=== PATIENT | female | born 1935 | race Caucasian/White ===

== ENCOUNTER 2017-04-05 13:22 | Outpatient (CLI) | payer MEDICARE ==
[~2017-04-05] VITALS: Ht 165.1 cm; Wt 77.3 kg
[~2017-04-05 13:22] MED LIST: ACETAMINOPHEN500 M1 PO; ALENDRONATE SOD70 MG PO; CALCIUM 600 +1 EAC3 PO; CETIRIZINE HCL5 MG PO; FEROCON CAPSUL1 EACH PO; GLUCOPHAGE500 MG PO; PRAVACHOL20 MG PO; ZYRTEC10 MG PO
[2017-04-05 13:58] VITALS: BP 113/63; Ht 165.1 cm; Wt 77.3 kg
== END 2017-04-05 14:06 | disposition home or self-care (01) ==
LOC: D.OPS 13:22
DX: M81.0 Age-related osteoporosis without current pathological fracture (principal)

== ENCOUNTER 2017-05-31 07:30 | Day surgery (SDC) | payer MEDICARE ==
[~2017-05-31] VITALS: Ht 165.1 cm; Wt 79.5 kg
--- NOTE | ~2017-05-31 | OP ---
PATIENT NAME: EFFIE RILEY MEDICAL RECORD: [id number] :37 LOCATION:D.OPS ADMISSION DATE: SURGEON: NUSRAT BLAIR MD DATE OF OPERATION: 05/31/2017 PREOPERATIVE DIAGNOSES: 1. Dysphagia. 2. Gastroesophageal reflux. 3. Reece's. POSTOPERATIVE DIAGNOSES: 1. Dysphagia. 2. Gastroesophageal reflux. 3. Reece's with large hiatal hernia, type IV. PROCEDURES: 1. Esophagogastroduodenoscopy with antral and random biopsies in the area of long segment Reece's. 2. Esophageal dilation up to 54-Swedish with a through the catheter balloon. SURGEON: Nusrat Blair MD. WINE CELLAR STOCK CLERK: None. BLOOD LOSS: Minimal. ANESTHESIA: IV sedation. COMPLICATIONS: None. The risks, possible complications and alternatives to procedure were explained to the patient. She elects to proceed. ENDOSCOPIC COURSE: The patient was conveyed to endoscopy suite electively on 05/31/2017. Intravenous sedation was induced by the anesthesia staff. A bite block was inserted. A gastroscope was inserted into the mouth. It was advanced easily into the hypopharynx. The esophagus was easily intubated as were the stomach and duodenum. Upon withdrawal, retroflexed and angulus views were obtained. Antral biopsies were obtained. I then advanced it through the catheter balloon. I sequentially dilated the entire length of the esophagus to 54-Swedish. The balloon dilator was then removed. I re-endoscoped the patient's esophagus. Four-quadrant biopsies were taken every centimeter up the area of Reece esophagus. The Reece's started at 22 cm from the lips to 40 cm. The endoscope was then withdrawn under direct vision. I will see the patient in my office in 2-3 weeks. Sometime in the future, she may be a candidate for Reece's in the area of long segment Reece esophagus. TRANSINT:[id number] Voice Confirmation ID: [id number] DOCUMENT ID: [id number] OPERATIVE REPORT [id number] GREGORIO RILEYLY Pita NUSRAT BLAIR MD CC: [id number] DICTATION DATE: 05/31/17 1136 RESEARCH MANAGEMENT ASSOCIATE: 05/31/17 1235 [facility] 05/31/17 [place] [address]
--- NOTE | ~2017-05-31 | HP ---
PATIENT: EFFIE RILEY MEDICAL RECORD: [id number] ACCOUNT: [id number] LOCATION:KEYSHA : 39 ADMISSION DATE: 05/31/17 HISTORY AND PHYSICAL EXAMINATION CHIEF COMPLAINT: Difficulty swallowing. HISTORY OF PRESENT ILLNESS: The patient has gastroesophageal reflux. She also has dysphagia about the mid esophagus. She is to undergo EGD for surveillance upper endoscopy with biopsies in the area of Reece as well as esophageal dilation. SOCIAL HISTORY: Nonsmoker. PAST MEDICAL AND SURGICAL HISTORY: Noninsulin dependent diabetes mellitus, hypercholesterolemia, history of appendectomy, history of tubal ligation, history of knee arthroscopy. REVIEW OF SYSTEMS: Negative for CVA or seizures. Negative for coronary artery disease or hypertension. HOME MEDICINES: Metformin, pravastatin as well as calcium. ALLERGIES: No known drug allergies. PHYSICAL EXAMINATION: GENERAL: The patient does not appear acutely ill. She does not appear chronically ill. VITAL SIGNS: Reviewed. HEAD: External ears appear normal. EYES: Extraocular movements are intact. NECK: Trachea is midline. CHEST: No intercostal retractions. PULMONARY: Nonlabored, no stridor. ABDOMEN: No peritonitis with movement. IMPRESSION: 1. Reece esophagus. 2. Gastroesophageal reflux. 3. Esophageal dilation. PLAN: EGD, esophageal dilation and surveillance upper endoscopy with biopsies in the area of Reece esophagus. TRANSINT:[id number] Voice Confirmation ID: [id number] DOCUMENT ID: [id number] HISTORY AND PHYSICAL [id number] ROSEMARYEFFIE ROBERT MD CC: EMETERIO CORRALES MD [id number] DICTATION DATE: 05/31/17 1113 BANDAGE WRAPPING MACHINE OPERATOR: 05/31/17 1122 [address] [place] [id number] [place] [id number]
[2017-05-31 08:43] LABS: BASOPHILS 0.6 % (0-2); EOSINOPHILS 6.4 % (0-7); HEMATOCRIT 38.7 % (36.0-48.0); HEMOGLOBIN 12.7 g/dL (12-16); LYMPHOCYTES 44.5 % (15-50); MCH 30.2 pg (26.0-34.0); MCHC 32.8 g/dL (31.0-37.0); MCV 92.1 fL (80.0-100.0); MONOCYTES 7.6 % (2-11); NEUTROPHILS 40.9 % (40-80); PLATELET COUNT 242 10x3/uL (130-400); WBC 4.9 10x3/uL (4.8-10.8)
[2017-05-31 08:56] LABS: ANION GAP 10.4 mmol/L (8-16); CALCIUM 8.3 mg/dL (8.5-10.1); CARBON DIOXIDE 28.5 mmol/L (21.0-32.0); CREATININE - SERUM 0.9 mg/dL (0.6-1.3); POTASSIUM - SERUM 3.9 mmol/L (3.5-5.1)
[2017-05-31 09:04] VITALS: BP 122/77; Ht 165.1 cm; Wt 79.5 kg
[2017-05-31] MEDS ORDERED: DEXILANT30 MG PO (09:04)
--- NOTE | 2017-05-31 11:21 | NUR ---
ESOPHAGUS DILATED TO 18 CM
== END 2017-05-31 12:30 | disposition home or self-care (01) ==
LOC: D.OPS 07:30
PROVIDERS: Anesthesiology
DX: R13.10 Dysphagia, unspecified (principal); K21.9 Gastro-esophageal reflux disease without esophagitis; K22.70 Barrett's esophagus without dysplasia; K44.9 Diaphragmatic hernia without obstruction or gangrene; E11.9 Type 2 diabetes mellitus without complications; E78.00 Pure hypercholesterolemia, unspecified; Z79.84 Long term (current) use of oral hypoglycemic drugs; Z79.899 Other long term (current) drug therapy; Z01.812 Encounter for preprocedural laboratory examination

== ENCOUNTER 2017-07-27 05:23 | Day surgery (SDC) | payer MEDICARE ==
[~2017-07-27 05:23] MED LIST changes: +DEXILANT60 MG PO
[2017-07-27 06:27] VITALS: BP 115/79; BMI 29.8
[2017-07-27 06:52] LABS: HEMATOCRIT 41.2 % (36.0-48.0); HEMOGLOBIN 13.6 g/dL (12-16); MCH 30.7 pg (26.0-34.0); MEAN PLATELET VOLUME 10.2 fL (7.4-10.4); RBC 4.43 10x6/uL (4.00-5.40); WBC 4.4 10x3/uL (4.8-10.8)
[2017-07-27 08:31] LABS: ANION GAP 10.7 mmol/L (8-16); CALCIUM 9.2 mg/dL (8.5-10.1); CARBON DIOXIDE 29.2 mmol/L (21.0-32.0); POTASSIUM - SERUM 3.9 mmol/L (3.5-5.1)
[2017-07-27 12:05] VITALS: BP 142/70
--- NOTE | 2017-07-27 12:05 | NUR ---
RECEIVED TO ROOM 2218 FROM RECOVERY ROOM VIA BED. ORIENTED TO FLOOR AND CALL LIGHT SYSTEM. AT BEDSIDE. CALL LIGHT IN REACH. WILL CONTINUE WITH PLAN OF CARE.
--- NOTE | 2017-07-27 12:42 | NUR ---
DILAUDID IT TRAINEE INITIATED PER ORDER. PEPCID 40 MG SIVP. SCDs TO BLE. IN ROOM. CALL LIGHT IN REACH. WILL CONTINUE WITH PLAN OF CARE.
--- NOTE | 2017-07-27 14:05 | NUR ---
CUP OF ICE TAKEN TO PATIENT PER REQUEST.
[2017-07-27 14:23] VITALS: BP 124/69; BMI 29.8
--- NOTE | 2017-07-27 15:02 | OP ---
PATIENT NAME: EFFIE RILEY MEDICAL RECORD: [id number] :37 LOCATION:D.MS [id number] ADMISSION DATE: SURGEON: MALDONADO DELGADO MD DATE OF OPERATION: 07/27/2017 SURGEON: Edwin Diana MD AIRCRAFT TIME CLERK SURGEON: MALDONADO DELGADO MD (JJ) PROCEDURE: Laparoscopic grade III paraesophageal hernia repair with Amador fundoplication. OPERATIVE COURSE: I assisted Dr. Diana during all fraser portions of the operation today. Please see Dr. Diana's op note for full details of operation. I assisted during placement of the trocars. I assisted Dr. Diana with reduction of the paraesophageal hernia, dissection and removal of the hernia sac, mediastinal dissection, closure of the hiatal hernia as well as assisted during the Amador fundoplication. For complete details, the steps involved, please see Dr. Diana's operative note. TRANSINT:[id number] Voice Confirmation ID: [id number] DOCUMENT ID: [id number] MALDONADO DELGADO MD at 1502 CC: [id number] DICTATION DATE: 07/27/17 1047 CEMENT FINISHER: 07/27/17 1124 [address] [place] [address] [place] [address]
--- NOTE | 2017-07-27 16:25 | NUR ---
MANAGER TRANSPORTATION STILL IN USE FOR PAIN CONTROL. NO NEEDS VOICED AT THIS TIME. EXPLAINED THAT SHE NEEDS TO WALK SOON POSSIBLE TO HELP WITH THE GAS PAINS. VERBALIZED UNDERSTANDING.
--- NOTE | 2017-07-27 16:50 | NUR ---
MADE SURE THAT PATIENT IS DRINKING 30 CC OF FLUID EVERY 30 MINUTES. ALSO EXPLAINED THAT SHE NEEDS TO WALK SOON POSSIBLE TO HELP WITH THE GAS PAINS. VERBALIZED UNDERSTANDING.
--- NOTE | 2017-07-27 18:23 | NUR ---
AMBULATIED 250 FT IN HALLWAY WITH STANDBY ASSIST. VOIDED 300 CC. NO OTHER CHANGES IN INITIAL ASSESSMENT. CALL LIGHT IN REACH. SCDs TO BLE. WILL CONTINUE WITH PLAN OF CARE.
[2017-07-27 20:00] VITALS: BP 131/74
--- NOTE | 2017-07-27 20:00 | NUR ---
ASSESSMENT PER FLOWSHEET. IV PATENT RT WRIST OF NS AT 100CC'S/HR DIRECTOR OF STUDENT SERVICES OF DILAUDID IN USE WITH SETTINGS AT 0.2MG Q10MIN W/NO L/O. LAP SITES TO ABDOMEN X5 C/D/I. O2 AT 2L/M PER NC. OFF AT THIS TIME USE PRN. NO DISTRESS.
--- NOTE | 2017-07-27 21:00 | NUR ---
AMBULATED IN HALLWAY FOR 250 FEET. TOLERATED WELL. TAKING CLEAR LIQUIDS WELL NO CARBO DRINKS AND NO STRAWS USED.
--- NOTE | 2017-07-27 23:32 | NUR ---
EYES CLOSED RESPIRATIONS WITH EASE AND UNLABORED.
[2017-07-28] VITALS: BP 130/70
--- NOTE | 2017-07-28 01:55 | NUR ---
EYES CLOSED RESPIRATIONS WITH EASE AND UNLABORED. O2 ON 2L/M PER NC. NO DISTRESS.
--- NOTE | 2017-07-28 03:32 | NUR ---
EYES CLOSED RESPIRATIONS WITH EASE AND UNLABORED.
[2017-07-28 04:00] VITALS: BP 143/72
[2017-07-28 05:21] LABS: BASOPHILS 0.1 % (0-2); EOSINOPHILS 0.1 % (0-7); HEMATOCRIT 44.9 % (36.0-48.0); HEMOGLOBIN 14.3 g/dL (12-16); IMMATURE GRANULOCYTES 0.1 % (0-5); LYMPHOCYTES 13.7 % (15-50); MCH 30.3 pg (26.0-34.0); MCHC 31.8 g/dL (31.0-37.0); MEAN PLATELET VOLUME 10.7 fL (7.4-10.4); MONOCYTES 7.5 % (2-11); NEUTROPHILS 78.5 % (40-80); PLATELET COUNT 230 10x3/uL (130-400); RBC 4.72 10x6/uL (4.00-5.40); RDW 12.8 % (11.5-14.5)
[2017-07-28 05:37] LABS: MCV 95.1 fL (80.0-100.0); WBC 7.6 10x3/uL (4.8-10.8)
[2017-07-28 05:47] LABS: ALBUMIN 3.5 g/dL (3.4-5.0); ANION GAP 14.2 mmol/L (8-16); BILIRUBIN - TOTAL 0.65 mg/dL (0.2-1.3); CALCIUM 8.2 mg/dL (8.5-10.1); CARBON DIOXIDE 25.4 mmol/L (21.0-32.0); CREATININE - SERUM 0.9 mg/dL (0.6-1.3); MAGNESIUM - SERUM 2.1 mg/dL (1.8-2.4); PHOSPHOROUS 3.1 mg/dL (2.5-4.9); POTASSIUM - SERUM 3.6 mmol/L (3.5-5.1); PROTEIN - SERUM 7.1 g/dL (6.4-8.2)
--- NOTE | 2017-07-28 07:28 | NUR ---
REPORT RECEIVED FROM FIELD CROP FARMER NURSE. CALL LIGHT IN REACH.
--- NOTE | 2017-07-28 08:43 | NUR ---
SPOKE WITH DR. BLAIR ABOUT PATIENT'S HEADACHE. NEW ORDER FOR BECKIE.
[2017-07-28 09:01] VITALS: BP 149/78
--- NOTE | 2017-07-28 10:00 | NUR ---
NEW BAG OF NS INITIATED @ 100 CC/HR.
[2017-07-28 12:22] VITALS: BP 132/74
[2017-07-28] MEDS ORDERED: HYDROCODON-ACE1 EAC7 PO (14:03)
--- NOTE | 2017-07-28 14:10 | NUR ---
IV DC'D WITH TIP INTACT.
--- NOTE | 2017-07-28 14:58 | NUR ---
PATIENT IS BEING DISCHARGED HOME AT THIS TIME. DENIES NEEDS.
--- NOTE | 2017-07-28 15:00 | NUR ---
DC INSTRUCTIONES EXPLAINED TO PATIENT AND . VERBALIZED. RX FOR NORCO HANDED TO PATIENT. DC'D TO VEHICLE VIA WC WITH .
--- NOTE | 2017-07-29 11:13 | HP ---
PATIENT: EFFIE RILEY MEDICAL RECORD: [id number] ACCOUNT: [id number] LOCATION:AnanyaLisaCRESENCIO : 37 ADMISSION DATE: 07/27/17 HISTORY AND PHYSICAL EXAMINATION Addendum There is a typed history and physical on the chart. History and physical examination is unchanged from the patient's visit to the office. I saw the patient in the holding area. I answered all of her questions. The risks, possible complications and alternatives to procedure were explained to the patient. She elects to proceed. We are going to proceed with laparoscopic hiatal hernia repair as well as a Amador fundoplication with Dr. Mccrary as the claims assistant. TRANSINT:[id number] Voice Confirmation ID: [id number] DOCUMENT ID: [id number] NUSRAT BLAIR MD at 1113 CC: [id number] DICTATION DATE: 07/27/17 1124 DIRECTOR CORRECTIONAL AGENCY: 07/27/17 1136 [facility] 07/28/17 [place] [id number] [place] [address]
--- NOTE | 2017-07-29 11:13 | OP ---
PATIENT NAME: EFFIE RILEY MEDICAL RECORD: [id number] :37 LOCATION:D.OPS ADMISSION DATE: SURGEON: NUSRAT BLAIR MD DATE OF OPERATION: 07/27/2017 PREOPERATIVE DIAGNOSES: 1. Intractable gastroesophageal reflux disease. 2. Large hiatal hernia. POSTOPERATIVE DIAGNOSES: 1. Intractable gastroesophageal reflux disease. 2. Grade III paraesophageal hernia. PROCEDURES: 1. Laparoscopic grade III paraesophageal hernia repair. 2. Laparoscopic Amador fundoplication. SURGEON: Nusrat Blair MD AIR VALUE TESTER: Dr. Donald Mccrary COMPLICATIONS: None. DRAINS: None. BLOOD LOSS: Less than 25 cc. The risks, possible complications, and alternatives to procedure were explained to the patient. He elects to proceed. Due to complexity of the procedure, 2 attending surgeons were necessary for completion of procedure. Dr. Mccrary will dictate an assistant track coach's note separately. He was present for the entire operation. His involvement in the operation included, but was not limited to, dissection, blunt retraction of tissues, assistance with laparoscopic suturing, irrigating and aspirating, assistance with placement of the Alvin retractor. His involvement in the blunt dissection and retraction was very significant. OPERATIVE COURSE: The patient was conveyed to the operating room electively on 07/27/2017. General anesthesia was induced by the anesthesia staff. The abdomen was sterilely prepped and draped. Utilizing Optiport device, incision was accomplished within the umbilicus and I advanced the Optiport device into the peritoneal cavity. CO2 insufflation was begun. Once a sufficient pneumoperitoneum had been achieved, an abdominal survey was undertaken. I noted no evidence of adhesive disease. Two 5-mm trocars were inserted in the left side of the abdomen. I changed out the umbilical 5-mm trocar for a 12-mm trocar. An 11 and then 12-mm trocars were placed in the right side of the abdomen. A skin incision was accomplished just to the left of the xiphoid process and a Alvin retractor was placed here easily. I retracted the left lateral segment of the liver with the Alvin retractor. Once I was satisfied with placement, we began the dissection of the phrenicoesophageal ligament, which was an extensive dissection. This was a OPERATIVE REPORT [id number] EFFIE RILEY large hernia. We reduced the stomach. We continued our blunt and Harmonic scalpel dissection up above the diaphragm. Once we were able to release all the phrenicoesophageal ligamentous attachments, we pulled the stomach down to the abdominal cavity. We measured a total of 6 cm of intra-abdominal esophagus that was not under tension. Retroesophageal window was completed. I then performed a posterior crural repair utilizing the Prolene and Stratafix device with a running suture. I then locked the suture. I was satisfied with the crural repair. Dr. Mccrary retracted the esophagus anteriorly during this procedure. We then brought the fundus of the stomach around posterior to the esophagus. We then sutured utilizing the Stratafix Prolene suture, the left fundus of the stomach to the right fundus of the stomach and we ran this down the anterior portion of the esophagus. We then locked the suture in place. We irrigated and aspirated. Some Cole was added up in the mediastinum. It was added to the hilum of the spleen as well. The Deon-Hal suture closure device was used with 0 Vicryl sutures to close the 11 and 12-mm trocar sites in the right upper quadrant. An UR6 0 Vicryl suture was used to close the fascial defect at the umbilicus. All the trocars were removed and the abdomen was desufflated. Marcaine was added to the subcutaneous tissues around the trocar sites for postoperative analgesia. The skin incision at the umbilicus was closed with interrupted 4-0 Vicryl Rapide sutures. The other skin incisions were closed with interrupted intracuticular 3-0 and 4-0 Vicryls. Sterile dressings were applied. The patient was then extubated and conveyed to post-anesthesia care unit, where she was in stable condition. TRANSINT:[id number] Voice Confirmation ID: [id number] DOCUMENT ID: [id number] NUSRAT BLAIR MD at 1113 CC: EMETERIO CORRALES MD [id number] DICTATION DATE: 07/27/17 1137 MOLDING SUPERVISOR: 07/27/17 [address] [facility] 07/28/17 [place] [address]
== END 2017-07-28 15:00 | disposition home or self-care (01) ==
LOC: D.OPS 05:23 → D.MS 11:54
PROVIDERS: Anesthesiology; Surgery
DX: K21.9 Gastro-esophageal reflux disease without esophagitis (principal); K44.9 Diaphragmatic hernia without obstruction or gangrene; Z01.812 Encounter for preprocedural laboratory examination

== ENCOUNTER 2017-10-12 10:24 | Outpatient (CLI) | payer MEDICARE ==
[~2017-10-12] VITALS: Ht 165.1 cm; Wt 75.0 kg
[~2017-10-12 10:24] MED LIST changes: +HYDROCODON-ACE1 EAC7 PO
[2017-10-12 11:06] VITALS: BP 127/73; Ht 165.1 cm; Wt 75.0 kg
== END 2017-10-12 11:10 | disposition home or self-care (01) ==
LOC: D.OPS 10:24
DX: M81.0 Age-related osteoporosis without current pathological fracture (principal)

== ENCOUNTER 2018-05-30 12:28 | Outpatient (CLI) | payer MEDICARE ==
[~2018-05-30] VITALS: Ht 165.1 cm; Wt 68.2 kg
[2018-05-30 12:59] VITALS: BP 112/61; Ht 165.1 cm; Wt 68.2 kg
== END 2018-05-30 13:45 | disposition home or self-care (01) ==
LOC: D.OPS 12:28
DX: M81.0 Age-related osteoporosis without current pathological fracture (principal)

== ENCOUNTER 2019-02-13 12:15 | Outpatient (CLI) | payer MEDICARE ==
[2019-02-13 13:12] VITALS: BP 134/75; BMI 25.1
== END 2019-02-13 13:25 | disposition home or self-care (01) ==
LOC: D.OPS 12:15
DX: M81.0 Age-related osteoporosis without current pathological fracture (principal)

== ENCOUNTER 2019-08-29 10:35 | Outpatient (CLI) | payer MEDICARE ==
[~2019-08-29] VITALS: Ht 165.1 cm; Wt 65.9 kg
[2019-08-29 11:02] VITALS: BP 137/68; Ht 165.1 cm; Wt 65.9 kg
== END 2019-08-29 11:05 ==
LOC: D.OPS 10:35
PROVIDERS: ATTEND Family Medicine
DX: M81.0 Age-related osteoporosis without current pathological fracture (principal)

== ENCOUNTER 2021-04-01 05:49 | Day surgery (SDC) | payer OTHER ==
[~2021-04-01] VITALS: Ht 167.6 cm; Wt 63.6 kg
[~2021-04-01 05:49] MED LIST changes: +MULTI-DAY VITAM1 TAB PO; +PERCOCET 5-3251 TAB PO
[2021-04-01 06:29] LABS: BASOPHILS 0.8 % (0-2); EOSINOPHILS 4.3 % (0-7); HEMATOCRIT 38.2 % (36.0-48.0); HEMOGLOBIN 12.7 g/dL (12-16); LYMPHOCYTES 43.5 % (15-50); MCH 30.3 pg (26.0-34.0); MCHC 33.4 g/dL (31.0-37.0); MCV 90.9 fL (80.0-100.0); MEAN PLATELET VOLUME 7.9 fL (7.4-10.4); MONOCYTES 8.5 % (2-11); NEUTROPHILS 42.9 % (40-80); PLATELET COUNT 245 10x3/uL (130-400); RDW 13.5 % (11.5-14.5); WBC 4.2 10x3/uL (4.8-10.8)
[2021-04-01 06:36] LABS: ANION GAP 11.1 mmol/L (8-16); CALCIUM 9.1 mg/dL (8.5-10.1); CARBON DIOXIDE 30.1 mmol/L (21.0-32.0); CREATININE - SERUM 0.9 mg/dL (0.6-1.3); POTASSIUM - SERUM 4.2 mmol/L (3.5-5.1)
[2021-04-01] MEDS ORDERED: EXCEDRIN ES (07:03)
[2021-04-01 07:09] VITALS: BP 118/69; Ht 167.6 cm; Wt 63.6 kg
--- NOTE | 2021-04-01 09:55 | HP ---
PATIENT: EFFIE RILEY MEDICAL RECORD: [id number] ACCOUNT: [id number] LOCATION:DCINDY : 39 ADMISSION DATE: 04/01/21 PCP: EMETERIO CORRALES MD HISTORY AND PHYSICAL EXAMINATION HISTORY OF PRESENT ILLNESS: The patient has a history of Reece's esophagus. In the future, she may be a candidate for Reece's ablation. The patient underwent a Amador fundoplication in the past and is very satisfied with results. She had no hematochezia. No hematemesis. She is here for Reece's surveillance. PAST MEDICAL AND SURGICAL HISTORY: Bilateral tubal ligation, history of appendectomy, arthritis, environmental allergies, and hypercholesterolemia. SOCIAL HISTORY: Nonsmoker. HOME MEDICINES: Please see the nursing list. ALLERGIES: No known drug allergies. REVIEW OF SYSTEMS: Negative for coronary artery disease or hypertension. Negative for CVA or seizures. PHYSICAL EXAMINATION: GENERAL: The patient does not appear acutely ill. She does not appear chronically ill. VITAL SIGNS: Reviewed. EARS: External ears appear normal. EYES: Extraocular movements are intact. NECK: Trachea is midline. CHEST: No intercostal retractions. PULMONARY: Nonlabored. No stridor. IMPRESSION: History of Reece's esophagus. PLAN: Plan will be EGD with sampling of Reece's. TRANSINT:[id number] Voice Confirmation ID: [id number] DOCUMENT ID: [id number] NUSRAT BLAIR MD at 0955 CC: TONYA CASTORENA DO [id number] DICTATION DATE: 04/01/2115 PLANNING MANAGER: 04/01/21 0928 [address] [place] [id number] [place] [id number]
--- NOTE | 2021-04-01 12:26 | OP ---
PATIENT NAME: EFFIE RILEY MEDICAL RECORD: [id number] :37 LOCATION:D.OPS ADMISSION DATE: SURGEON: EDWIN BLAIR MD DATE OF OPERATION: 04/01/2021 PREOPERATIVE DIAGNOSIS: Reece's esophagus, in need of endoscopic surveillance. PREOPERATIVE DIAGNOSES: Reece's esophagus, in need of endoscopic surveillance with long segment Reece's esophagus without nodularity, also one shallow chronic appearing gastric ulcer in the antrum. PROCEDURE: Esophagogastroduodenoscopy with antral and numerous distal esophageal biopsies in the area of Reece's. SURGEON: Edwin Blair MD BLACK JACK DEALER: None. BLOOD LOSS: Minimal. ANESTHESIA: IV sedation. COMPLICATIONS: None. The risks, possible complications, and alternatives of the procedure were explained to the patient. She elects to proceed. The discussion specifically included, but was not limited to, bleeding requiring emergency reoperation, infection, endoscopic perforation. ENDOSCOPIC COURSE: The patient was conveyed to the endoscopy suite electively on 04/01/2021. IV sedation was induced by the anesthesia staff. A bite block was inserted. A gastroscope was inserted into the mouth. It was advanced easily into the hypopharynx. Esophagus was easily intubated as were the stomach and duodenum. Upon withdrawal, retroflexed and angulus views were obtained. Antral biopsies were obtained. Then, multiple distal esophageal biopsies were obtained. These were obtained every 2 cm and they were obtained circumferentially. The endoscope was then withdrawn under direct vision. I will see the patient back in my office in 2 to 3 weeks. I will plan for her next surveillance upper endoscopy with biopsies to take place in 2 years. She would be a candidate for Reece's ablation. TRANSINT:[id number] Voice Confirmation ID: [id number] DOCUMENT ID: [id number] EDWIN BLAIR MD at 1226 CC: [id number] DICTATION DATE: 04/01/21 0951 BOWLING PIN SETTERS INSTALLER: 04/01/21 1216 REG [facility] [address] [place] [address]
--- NOTE | 2021-04-01 12:51 | NUR ---
1026 IV DC'D. CATHETER TIP INTACT. NO BLEEDING AT SITE. COBAN DRESSING APPLIED. 1029 DISCHARGE INSTRUCTIONS REVIEWED WITH PT AND HER WHO BOTH VOICE UNDERSTANDING OF THESE INSTRUCTIONS.
== END 2021-04-01 10:32 | disposition home or self-care (01) ==
LOC: D.OPS 05:49
PROVIDERS: Anesthesiology; ATTEND Surgery
DX: K22.70 Barrett's esophagus without dysplasia (principal); K25.9 Gastric ulcer, unspecified as acute or chronic, without hemorrhage or perforation; E78.00 Pure hypercholesterolemia, unspecified; Z98.890 Other specified postprocedural states; Z78.9 Other specified health status